=== PATIENT | male | born 1990 | race Caucasian/White ===

== ENCOUNTER 2017-12-19 17:39 | Emergency (ER) | payer MEDICAID ==
[~2017-12-19] VITALS: Ht 185.4 cm; Wt 106.0 kg
[~2017-12-19 17:39] MED LIST: BACDS PO; CEPH500C5 PO; CLIN-26 PO; CLIN150C8 PO; IBUP-1986 PO; NO HOME MEDS; RANI150T8 PO; TRAM50TA2 PO
[2017-12-19] MEDS ORDERED: normal saline 1000ml 1,000 ML IV ONE (18:25)
[2017-12-19 18:42] VITALS: BP 128/77
[2017-12-19 18:44] LABS: BASOPHILS % (AUTO) 0.6 % (0-1); EOSINOPHILS # (AUTO) 0.1 X10'3 (0-0.9); EOSINOPHILS % (AUTO) 1.4 % (0-6); HEMATOCRIT 43.3 % (42.0-52.0); HEMOGLOBIN 14.8 g/dl (14.0-17.9); LYMPHOCYTES # (AUTO) 1.9 X10'3 (1.1-4.8); MEAN CORPUSCULAR HEMOGLOBIN 29.1 PG (27.0-31.0); MEAN CORPUSCULAR HGB CONC 34.1 % (33.0-36.5); MEAN CORPUSCULAR VOLUME 85.3 FL (78-98); MEAN PLATELET VOLUME 8.3 FL (7.4-10.4); MONOCYTES # (AUTO) 0.7 X10'3 (0-0.9); MONOCYTES % (AUTO) 8.9 % (2-12); NEUTROPHILS # (AUTO) 4.8 X10'3 (1.8-7.7); NEUTROPHILS % (AUTO) 64.1 % (42-75); PLATELET COUNT 246 X10'3 (140-440); RED BLOOD COUNT 5.08 X10'6 (4.70-6.10); RED CELL DISTRIBUTION WIDTH 13.6 % (11.5-14.5); WHITE BLOOD COUNT 7.5 X10'3 (4.5-11.0)
[2017-12-19 18:54] LABS: PROTHROMBIN TIME 10.5 SECONDS (9.0-12.0)
[2017-12-19 18:58] LABS: ALANINE AMINOTRANSFERASE 29 U/L (12-78); ALBUMIN 4.1 G/DL (3.4-5.0); ALBUMIN/GLOBULIN RATIO 1.3 (1.1-1.5); ALKALINE PHOSPHATASE 53 IU/L (46-116); ANION GAP 6 (8-16); ASPARTATE AMINO TRANSFERASE 17 U/L (10-37); BILIRUBIN,TOTAL 0.7 MG/DL (0.1-1.0); BLOOD UREA NITROGEN 18 MG/DL (7-18); BUN/CREATININE RATIO 18.9 (5.4-32.0); CALCIUM 8.6 MG/DL (8.5-10.1); CHLORIDE 106 MMOL/L (99-107); CREATININE 0.95 MG/DL (0.60-1.10); GLUCOSE 68 MG/DL (70-104); SODIUM 140 MMOL/L (135-145); TOTAL CARBON DIOXIDE 28.4 MMOL/L (24-32); TOTAL PROTEIN 7.3 G/DL (6.4-8.2); eGFR > 90 ML/MIN
[2017-12-19 19:22] LABS: CLARITY,URINE CLEAR (Clear); COLOR,URINE YELLOW (Yellow); GLUCOSE, URINE NEGATIVE (Neg); KETONES,URINE TRACE mg/dl (Neg); LEUKOCYTE ESTERASE ,URINE NEGATIVE (Neg); NITRITES, URINE NEGATIVE (Neg); OCCULT BLOOD,URINE TRACE-INTACT (Neg); PH,URINE 5.5 (4.8-8.0); PROTEIN,URINE NEGATIVE (Neg); UROBILINOGEN,URINE 0.2 E.U/dL (0.2-1.0)
[2017-12-19 19:25] LABS: UA COLLECTION TYPE CLN CATCH MIDSTREAM
[2017-12-19 19:27] LABS: BACTERIA,URINE FEW /HPF (Neg); MUCUS STRANDS FEW /LPF (Neg); RBC,URINE 0-2 /HPF (0-2); SQUAMOUS EPITHELIAL CELL,UR FEW /LPF (FEW); WBC,URINE 0-4 /HPF (0-4)
[2017-12-19] MEDS ORDERED: normal saline 1000ML IV soln IVB ONE (19:40)
[2017-12-19] MEDS ORDERED: ONDA4TAB12 PO (19:54)
[2017-12-19] MEDS ORDERED: BACDS PO (19:54)
== END 2017-12-19 20:38 | disposition home or self-care (01) ==
LOC: ER 17:40
DX: R10.30 Lower abdominal pain, unspecified (principal); R19.7 Diarrhea, unspecified; F17.200 Nicotine dependence, unspecified, uncomplicated; Z98.890 Other specified postprocedural states
CPT/HCPCS: 36415; 80053; 81001; 85025; 85610; 99284; J7030

== ENCOUNTER 2019-07-11 08:48 | Emergency (ER) | payer MEDICAID, OTHER ==
[~2019-07-11] VITALS: Ht 185.4 cm; Wt 122.0 kg
[~2019-07-11 08:48] MED LIST changes: -CEPH500C5 PO; +LIDOcaine 1% W/epiNEPHrine 1:100,000 20ml vial ONE; +ONDA4TAB12 PO
[2019-07-11 08:52] VITALS: BP 148/89
[2019-07-11] MEDS ORDERED: TETanus/Pertussis (Acell)/Diphther VAC/PF (Tdap-Adult) 0.5ml syringe IMVAC ONE (09:45)
[2019-07-11] MEDS ORDERED: CEPH-572 PO (10:20)
== END 2019-07-11 10:28 | disposition home or self-care (01) ==
LOC: ER 08:49
DX: S61.213A Laceration without foreign body of left middle finger without damage to nail, initial encounter (principal); F17.200 Nicotine dependence, unspecified, uncomplicated; F12.90 Cannabis use, unspecified, uncomplicated; Z98.890 Other specified postprocedural states; Z79.2 Long term (current) use of antibiotics; Z79.899 Other long term (current) drug therapy; W26.0XXA Contact with knife, initial encounter; Y93.89 Activity, other specified; Y92.89 Other specified places as the place of occurrence of the external cause; Y99.8 Other external cause status
CPT/HCPCS: 12002; 73140; 90471; 90715; 99283

== ENCOUNTER 2021-02-23 16:23 | Emergency (ER) | payer MEDICAID ==
[~2021-02-23] VITALS: Ht 185.4 cm; Wt 109.1 kg
[~2021-02-23 16:23] MED LIST changes: -LIDOcaine 1% W/epiNEPHrine 1:100,000 20ml vial ONE
[2021-02-23 16:25] VITALS: BP 142/91
[2021-02-23] MEDS ORDERED: NAPR-56 PO (16:55)
[2021-02-23] MEDS ORDERED: ORPH100T2 PO (16:55)
--- NOTE | 2021-02-23 17:15 | NUR ---
PT DISCHARGED FROM LOBBY, BEFORE NURSING ASSESSMENTS DONE
== END 2021-02-23 17:14 | disposition home or self-care (01) ==
LOC: ER 16:23
DX: S13.4XXA Sprain of ligaments of cervical spine, initial encounter (principal); F12.10 Cannabis abuse, uncomplicated; Z79.899 Other long term (current) drug therapy; V87.7XXA Person injured in collision between other specified motor vehicles (traffic), initial encounter; Y93.89 Activity, other specified; Y92.89 Other specified places as the place of occurrence of the external cause; Y99.8 Other external cause status
CPT/HCPCS: 71045; 99283

== ENCOUNTER 2021-03-01 12:57 | Emergency (ER) | payer MEDICAID ==
[~2021-03-01] VITALS: Ht 185.4 cm; Wt 113.6 kg
[~2021-03-01 12:57] MED LIST changes: +NAPR-56 PO; +ORPH100T2 PO
[2021-03-01 13:26] VITALS: BP 156/80
== END 2021-03-01 15:50 | disposition home or self-care (01) ==
LOC: ER 12:59
DX: R07.81 Pleurodynia (principal); F12.90 Cannabis use, unspecified, uncomplicated; Z98.890 Other specified postprocedural states; Z79.2 Long term (current) use of antibiotics; Z79.899 Other long term (current) drug therapy
CPT/HCPCS: 71045; 99283

== ENCOUNTER 2022-04-09 17:51 | Emergency (ER) | payer MEDICAID ==
[~2022-04-09] VITALS: Ht 185.4 cm; Wt 100.0 kg
[~2022-04-09 17:51] MED LIST changes: -NAPR-56 PO
[2022-04-09 18:17] VITALS: BP 143/98
== END 2022-04-09 20:55 | disposition left against medical advice (07) ==
LOC: ER 17:52
DX: M25.519 Pain in unspecified shoulder (principal); Z53.21 Procedure and treatment not carried out due to patient leaving prior to being seen by health care provider
CPT/HCPCS: 73030

== ENCOUNTER 2023-01-17 15:00 | Emergency (ER) | payer MEDICAID ==
[~2023-01-17 15:00] MED LIST changes: +CLIN-214 PO; -CLIN150C8 PO; -ORPH100T2 PO; +ORPH100T4 PO
== END 2023-01-17 16:57 | disposition left against medical advice (07) ==
LOC: ER 15:01
DX: M25.579 Pain in unspecified ankle and joints of unspecified foot (principal); Z53.21 Procedure and treatment not carried out due to patient leaving prior to being seen by health care provider

== ENCOUNTER 2023-08-19 13:33 | Emergency (ER) | payer BC, MEDICAID ==
[~2023-08-19] VITALS: Ht 185.4 cm; Wt 118.0 kg
[2023-08-19 14:15] VITALS: BP 127/86; PULSE 85; TEMP 97.9; O2SAT 99
[2023-08-19 15:13] LABS: BASOPHILS # (AUTO) 0.1 X10'3 (0-0.2); BASOPHILS % (AUTO) 0.7 % (0-1); EOSINOPHILS # (AUTO) 0.1 X10'3 (0-0.9); EOSINOPHILS % (AUTO) 1.8 % (0-6); HEMATOCRIT 45.9 % (42.0-52.0); HEMOGLOBIN 15.9 g/dl (14.0-17.9); LYMPHOCYTES # (AUTO) 2.4 X10'3 (1.1-4.8); LYMPHOCYTES % (AUTO) 29.2 % (21-51); MEAN CORPUSCULAR HEMOGLOBIN 29.7 PG (27.0-31.0); MEAN CORPUSCULAR HGB CONC 34.7 g/dL (33.0-36.5); MEAN CORPUSCULAR VOLUME 85.5 FL (78-98); MEAN PLATELET VOLUME 8.5 FL (7.4-10.4); MONOCYTES # (AUTO) 0.7 X10'3 (0-0.9); MONOCYTES % (AUTO) 8.8 % (2-12); NEUTROPHILS % (AUTO) 59.5 % (42-75); PLATELET COUNT 254 X10'3 (140-440); RED BLOOD COUNT 5.37 X10'6 (4.70-6.10); WHITE BLOOD COUNT 8.4 X10'3 (4.5-11.0)
[2023-08-19 15:13] LABS: URINE AMPHETAMINE SCREEN NEGATIVE (Neg); URINE BARBITUATE SCREEN NEGATIVE (Neg); URINE BENZODIAZEPINES SCREEN NEGATIVE (Neg); URINE CANNABINOID SCREEN NEGATIVE (Neg); URINE COCAINE SCREEN NEGATIVE (Neg); URINE METHADONE SCREEN NEGATIVE (Neg); URINE OPIATE SCREEN NEGATIVE (Neg); URINE PHENCYCLIDINE SCREEN NEGATIVE (Neg)
[2023-08-19 15:15] LABS: APTT 27 SECONDS (22-32); PROTHROMBIN TIME 10.9 SECONDS (9.0-12.0)
[2023-08-19 15:19] LABS: ALANINE AMINOTRANSFERASE 35 U/L (12-78); ALBUMIN 4.4 G/DL (3.4-5.0); ALBUMIN/GLOBULIN RATIO 1.3 (1.1-1.5); ALKALINE PHOSPHATASE 71 IU/L (46-116); ANION GAP 5 (8-16); ASPARTATE AMINO TRANSFERASE 27 U/L (10-37); BILIRUBIN,TOTAL 0.7 MG/DL (0.1-1.0); BLOOD UREA NITROGEN 17 MG/DL (7-18); BUN/CREATININE RATIO 18.7 (10.0-20.0); CALCIUM 8.7 MG/DL (8.5-10.1); CHLORIDE 103 MMOL/L (99-107); CREATININE 0.91 MG/DL (0.60-1.10); GLUCOSE 103 MG/DL (70-104); POTASSIUM 4.6 MMOL/L (3.5-5.1); SODIUM 139 MMOL/L (135-145); TOTAL CARBON DIOXIDE 31.1 MMOL/L (24-32); TOTAL PROTEIN 7.7 G/DL (6.4-8.2); eCRCL 129 ML/MIN; eGFR > 90 ML/MIN
[2023-08-19] MEDS: normal saline 1000ml 1,000 ML IV ONE (15:52)
[2023-08-19] MEDS: ketorolac tromethamine 15mg/ml inj. IV ONE (16:07)
[2023-08-19] MEDS ORDERED: ERYT1OIN6 EACHEYE (16:31)
[2023-08-19 16:56] VITALS: RESP 16
== END 2023-08-19 17:09 | disposition home or self-care (01) ==
LOC: ER 13:33
DX: R51.9 Headache, unspecified (principal); H01.004 Unspecified blepharitis left upper eyelid; F12.10 Cannabis abuse, uncomplicated; Z79.899 Other long term (current) drug therapy
CPT/HCPCS: 36415; 70450; 80053; 80305; 85025; 85610; 85730; 96361; 96374; 99285; J1885; J7030